=== PATIENT | female | born 1955 | race Caucasian/White ===

== ENCOUNTER 2016-07-09 13:21 | Outpatient (CLI) | payer OTHER ==
--- NOTE | 2016-07-09 15:07 | DIAGNOSTIC IMAGING REPORT ---
PROCEDURE: XR KNEE 3 VIEWS - RIGHT INDICATION: NON HEALING WOUND,TUNNELS TECHNIQUE: Three views of the right knee. COMPARISON: None were made available. 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 There is periprosthetic lucency along the medial aspect of the tibial plateau and in the medial tibial metaphyseal some and of uncertain chronicity. At the tips of the prosthesis stones there is no evidence of lucency. Moderate parapatellar anterior soft tissue thickening. There is a bandage and pretibial region. Underlying this, there is questionable, early cortical erosive change. This could be enthesopathy at the distal patellar tendon insertion site. Comparison to prior films is recommended. Heavy atherosclerosis. No acute fractures. Demineralization of the osseous structures. IMPRESSION: 1. Questionable cortical erosion at the anterior tibial tubercle. Comparison to prior films is recommended and these become available, an addendum to this report can be generated. 2. 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 Again, comparison to priors would be helpful. 3. No acute fractures.
== END 2016-07-09 23:00 ==
LOC: XR SRH 13:21
DX: E11.622 Type 2 diabetes mellitus with other skin ulcer (principal); L97.812 Non-pressure chronic ulcer of other part of right lower leg with fat layer exposed; Z96.651 Presence of right artificial knee joint